=== PATIENT | female | born 1950 ===

== ENCOUNTER 2021-10-21 16:59 | Observation (INO) | payer MEDICARE, BC ==
[2021-10-21] MEDS ORDERED: Acetaminophen 325 MG Tab PO PRN (17:16)
[2021-10-21] MEDS ORDERED: Ketorolac 30 MG/ML SDV IVPUSH PRN (17:16)
[2021-10-21] MEDS ORDERED: HYDROmorphone 0.5 MG/0.5 ML Syringe IVPUSH PRN (17:16)
[2021-10-21] MEDS ORDERED: Acetaminophen/HYDROcodone 325-5 MG Tab PO PRN (17:16)
[2021-10-21] MEDS ORDERED: Zolpidem 5 MG Tab PO PRN (17:20)
[2021-10-21] MEDS ORDERED: Sodium Chloride 0.9% 10 ML Syringe FLUSH PRN (17:20)
[2021-10-21] MEDS ORDERED: Albuterol/Ipratropium 3.0-0.5 MG/3 ML Neb Soln NEB PRN (17:20)
[2021-10-21] MEDS: Dextrose 5%-0.9% NaCl 1,000 ML IV SCH (17:48)
[2021-10-21] MEDS: Ondansetron 4 MG/2 ML SDV IVPUSH PRN (17:53)
[2021-10-21] MEDS ORDERED: 50% Dextrose in Water 50 ML Syringe IVPUSH PRN (19:28)
[2021-10-21] MEDS ORDERED: Glucagon,Human Recombinant 1 MG Vial IM PRN (19:28)
[2021-10-21] MEDS: Insulin Lispro 100 Units/ML 3 ML Vial SUBCUT SCH (21:23)
[2021-10-21] MEDS: Pantoprazole 40 MG Vial IVPUSH SCH (21:25)
[2021-10-21] MEDS: Sodium Chloride 0.9% 10 ML Syringe FLUSH SCH (21:26)
[2021-10-22] MEDS: Insulin Lispro 100 Units/ML 3 ML Vial SUBCUT SCH ×3 (02:22→12:49)
[2021-10-22 07:16] LABS: ANION GAP 12.4 mEq/L (7-13)
[2021-10-22] MEDS: Dextrose 5%-0.9% NaCl 1,000 ML IV SCH (07:43)
[2021-10-22] MEDS ORDERED: ALBUTEROL INH PRN (07:59)
[2021-10-22] MEDS ORDERED: Potassium Chloride 10 MEQ Tab.ER PO SCH ×2 (08:00→12:00)
[2021-10-22] MEDS: Ondansetron 4 MG/2 ML SDV IVPUSH PRN (08:22)
[2021-10-22] MEDS: Sodium Chloride 0.9% 10 ML Syringe FLUSH SCH (08:27)
[2021-10-22] MEDS ORDERED: Levothyroxine 150 MCG Tab PO SCH (09:00)
[2021-10-22] MEDS: Pantoprazole 40 MG Vial IVPUSH SCH (09:22)
[2021-10-22] MEDS ORDERED: Rosuvastatin 10 MG Tab PO SCH (21:00)
== END 2021-10-22 17:25 | disposition home or self-care (01) ==
LOC: DL.MS 16:59
PROVIDERS: ADMIT Internal Medicine; ATTEND Internal Medicine
DX: K85.90 Acute pancreatitis without necrosis or infection, unspecified (principal); E11.65 Type 2 diabetes mellitus with hyperglycemia; E66.01 Morbid (severe) obesity due to excess calories; K76.0 Fatty (change of) liver, not elsewhere classified; R19.7 Diarrhea, unspecified; D72.829 Elevated white blood cell count, unspecified; E03.9 Hypothyroidism, unspecified; J45.909 Unspecified asthma, uncomplicated; K21.9 Gastro-esophageal reflux disease without esophagitis; I07.1 Rheumatic tricuspid insufficiency; F32.A Depression, unspecified; E87.6 Hypokalemia; Z88.2 Allergy status to sulfonamides; Z88.1 Allergy status to other antibiotic agents; Z79.84 Long term (current) use of oral hypoglycemic drugs; Z79.890 Hormone replacement therapy; Z79.51 Long term (current) use of inhaled steroids; Z79.899 Other long term (current) drug therapy; Z79.83 Long term (current) use of bisphosphonates
CPT/HCPCS: 36415; 80053; 82947; 83605; 83690; 83735; 85025; 86140; 87086; A9270; C9113; J2405; J3490; J7042; 96374; 96375; 96376; G0378; G0379

== ENCOUNTER 2022-09-25 17:17 | Emergency (ER) | payer MEDICARE, BC ==
[2022-09-25] MEDS ORDERED: fentaNYL 100 MCG/2 ML SDV IVPUSH ONE ×3 (17:38→18:37)
[2022-09-25] MEDS ORDERED: Ondansetron 4 MG/2 ML SDV IVPUSH ONE (17:39)
[2022-09-25] MEDS ORDERED: Take Home: Acetaminophen/oxyCODONE 325-5 MG, 5 Tab Pack PO ONE (18:57)
== END 2022-09-25 19:28 | disposition home or self-care (01) ==
LOC: DL.ED 17:17
DX: S52.502A Unspecified fracture of the lower end of left radius, initial encounter for closed fracture (principal); S52.615A Nondisplaced fracture of left ulna styloid process, initial encounter for closed fracture; I10 Essential (primary) hypertension; J45.909 Unspecified asthma, uncomplicated; K21.9 Gastro-esophageal reflux disease without esophagitis; E03.9 Hypothyroidism, unspecified; Z88.2 Allergy status to sulfonamides; Z88.8 Allergy status to other drugs, medicaments and biological substances; Z79.899 Other long term (current) drug therapy; W18.30XA Fall on same level, unspecified, initial encounter
CPT/HCPCS: 29125; 73090; 73100; 96374; 96375; 96376; 99283; A9270; J2405; J3010